=== PATIENT | male | born 1975 | race Caucasian/White ===

== ENCOUNTER 2017-06-07 12:59 | Emergency (ER) | payer OTHER ==
[2017-06-07 13:28] VITALS: BMI 27.1
--- NOTE | 2017-06-07 13:32 | ED PDOC ---
Arrival/HPI - General Chief Complaint: Dental Pain Time Seen by Provider: 06/07/17 13:25 Historian: Patient, Parent - History of Present Illness Time/Duration: Prior to Arrival Symptom Onset: Sudden Symptom Course: Unchanged Severity Level: Mild Associated Symptoms (Text): 06/07/17 13:30 Patient reports that he had a severe yawn and now his jaw is out of place and he is unable to close it properly. He last ate some oatmeal at approximately 10 AM this morning. He's been nothing by mouth since then. No medications and no known allergies. No past medical history. Family/Social History - Physician Review Nursing Documentation Reviewed: Yes Family/Social History: Unknown Family HX Smoking Status: Never Smoked Hx Alcohol Use: Yes Frequency of alcohol use: Socially Hx Substance Use: No Allergies/Home Meds Allergies/Adverse Reactions: Allergies No Known Allergies Allergy (Verified 06/07/17 13:28) Review of Systems - Physician Review All systems were reviewed & negative as marked: Yes Physical Exam Vital Signs Temp Pulse Resp BP Pulse Ox 06/07/17 13:50 68 18 151/95 H 06/07/17 13:45 98.1 F 79 18 136/78 100 06/07/17 13:00 98.1 F 78 18 136/78 100 Temperature: Afebrile Blood Pressure: Normal Pulse: Regular Respiratory Rate: Normal Appearance: Positive for: Well-Appearing, Non-Toxic, Uncomfortable Pain Distress: None Mental Status: Positive for: Alert and Oriented X 3 - Systems Exam Head: Present: Atraumatic, Normocephalic Pupils: Present: PERRL Extroacular Muscles: Present: EOMI Conjunctiva: Present: Normal Ears: Present: NORMAL TM, Normal Canal. No: Erythema Mouth: Present: Moist Mucous Membranes, Other (Mandible is obviously dislocated. ) Pharnyx: No: ERYTHEMA, EXUDATE, TONSILS ENLARGED Respiratory/Chest: Present: Clear to Auscultation, Good Air Exchange. No: Respiratory Distress, Accessory Muscle Use Cardiovascular: Present: Regular Rate and Rhythm, Normal S1, S2. No: Murmurs Neurological: Present: GCS=15, CN II-XII Intact, Speech Normal, Motor Func Grossly Intact Skin: Present: Warm, Dry, Normal Color. No: Rashes Psychiatric: Present: Alert, Oriented x 3, Normal Insight, Normal Concentration Medical Decision Making ED Course and Treatment: 06/07/17 13:52 Mandible reduction. After moderate sedation with etomidate and the patient on a monitor with IV placed and pulse oximetry placed and the nurse present the mandible was reduced manually into good position. A bunny wrap was placed. 06/07/17 14:58 Patient remains comfortable. He will be discharged home accompanied by his mother to follow-up with PMD. Soft diet. Follow up in ER as needed. - Medication Orders Current Medication Orders: Sodium Chloride (Sodium Chloride 0.9%) 1,000 mls @ 100 mls/hr IV .Q10H [facility] ED Procedural Sedation - Pre Anesthesia Assessment Chief Complaint: Dental Pain Past Medical History: Medications Reviewed Previous Surgies: Reviewed Family History/Social History: Reviewed - Physical Exam/Review of Systems Vital Signs Reviewed: Yes Cardiovascular: Regular Rate and Rhythm, Normal S1, S2, Peripheal Pulses Present Respiratory/Chest: Clear to Auscultation, Good Air Exchange Neurological: GCS=15, CN II-XII Intact, Speech Normal, Motor Func Grossly Intact , Normal Sensory Function, Normal Cerebellar Funct Mental Status: Alert and Oriented X 3 - Pre-Procedure Airway Assessment History of difficult intubation or surgical airway (i.e trach):: No Inability to extend neck:: Yes Mouth opening less than two finger breadth:: Yes Diagnosis of sleep apnea:: No Less than three finger breadth to hyoid bone:: Yes ASA Criteria: 1 - Healthy, normal. 2 - Mild systemic disease (No functional limitations, mildline obesity, DM withot complications, Hypertention). 3 - Severe systemic disease (Some functional limitation, stable angina, morbid obesity, controlled COPD/Asthma/CHF). 4 - Sever systemic disease constant threat to life (Unstable angina, active symptoms of COPD/Asthma, CHF/ Hypertension. 5 - Moribund ASA Clarification: ASA I Mallampati (airway): Class I Nursing ED Procedural Sedation: ER Moderate Sedation Start: 06/07/17 13: 37 Freq: Status: Active Created 06/07/17 13:37 EWO (Rec: 06/07/17 13:37 EWO [id number]) Document 06/07/17 13:45 SRE (Rec: 06/07/17 13:56 SRE [id number]) Mod Sedation Time Out Process Time Out Process Patient identification (MR# and name Yes from ID Band) Procedure verified Yes Consent read aloud and agreed upon Yes Correct Site/Side marked and visibe to Not Applicable team after prepping and draping (unless exempt) Implants, special equipment and x-rays Not Applicable available Prophylactic antibiotic given (if Not Applicable applicable) Pre-Procedure Mod Sedation Pre-Procedure Checklist Patient's identity verified by Patient stating name Patient stating [facility] ID bracelet Family member Pre Procedure Checklist BP monitor Signed consent Ambu bag Patient IV Patient ID Oxygen Airway Code Cart Suction set up Pre Anesthesia Assessment Chief Complaint Dental Pain Moderate Sedation VS & Pain Ax Temperature Temperature (97.6 F-99.6 F) 98.1 F Pulse Pulse Rate (60-90 beats/min) 79 Respirations Respiratory Rate (12-24 breaths/min) 18 Oxygen Delivery Method Nasal Cannula SPO2 (95-100) 100 O2 LPM (L/min) 3 Blood Pressure Blood Pressure (100/60-150/90 mm Hg) 136/78 Cardiac Rhythm Cardiac Rhythm sinus Document 06/07/17 13:50 SRE (Rec: 06/07/17 14:07 SRE [id number]) Pre-Procedure Mod Sedation Pre Anesthesia Assessment Chief Complaint Dental Pain Intra-Procedure Vital Signs Vital Signs and Pain Assessment Blood Pressure (100/60-150/90 mm Hg) 96/71 Pulse Rate (60-90 beats/min) 69 Respiratory Rate (12-24 breaths/min) 18 Level of Consciousness 5 = Unresponsive to Physical/ Verbal Stimuli Intra-Procedure Vital Signs #2 Vital Signs and Pain Assessment Blood Pressure (100/60-150/90 mm Hg) 164/103 Pulse Rate (60-90 beats/min) 70 Respiratory Rate (12-24 breaths/min) 16 Level of Consciousness 2 = Occasionally Drowsy, Easy to Arouse Pain Intensity 0 Intra-Procedure Vital Signs #3 Vital Signs and Pain Assessment Blood Pressure (100/60-150/90 mm Hg) 157/97 Pulse Rate (60-90 beats/min) 66 Respiratory Rate (12-24 breaths/min) 18 Level of Consciousness 1 = Alert Pain Intensity 0 Cardiac Rhythm sinus rhythm Intra-Procedure Vital Signs #4 Vital Signs and Pain Assessment Blood Pressure (100/60-150/90 mm Hg) 151/95 Pulse Rate (60-90 beats/min) 68 Respiratory Rate (12-24 breaths/min) 18 Level of Consciousness 1 = Alert REACT Score REACT Score Respirations Spontaneous Respirations > 10 Without Airway Support Energy Moves Legs: Can Keep Head Up Alertness Gentle Stimuli Only Circulation Systolic BP At PreOp or Above Full Pulse Temperature Temperature is >96 Degrees Farenheit Discharge Checklist Written MD order for Discharge Yes Vital signs assessed and are consistent Yes with pre-procedure reading Voided (if applicable) No: voided pre procedure Minimal nausea, vomiting, and dizziness No Ambulates to pre-procedural level Yes Alert and oriented to pre-procedural Yes level Responsible adult escort present Yes DISCHARGE INSTRUCTIONS GIVEN: Yes - Intra-Procedure (Medications) Medications Given: Sodium Chloride (Sodium Chloride 0.9%) 1,000 mls @ 100 mls/hr IV .Q10H [facility] Etomidate 15 mg IV push - Post-Procedure Post Procedure Note: Patient is awake alert in no longer sedated Disposition/Present on Arrival - Present on Arrival Any Indicators Present on Arrival: No History of DVT/PE: No History of Uncontrolled Diabetes: No Urinary Catheter: No History of Decub. Ulcer: No - Disposition Have Diagnosis and Disposition been Completed?: Yes Diagnosis: Dislocated mandible Disposition: HOME/ ROUTINE Disposition Time: 14:59 Patient Plan: Discharge Condition: IMPROVED Discharge Instructions (ExitCare): Dislocated Jaw (DC) Additional Instructions: Soft diet. Tylenol or Advil as directed on bottle as needed. Follow-up with PMD. Follow up in ER as needed. Forms: [employer] (E[place]ian)
[2017-06-07] MEDS ORDERED: Etomidate 20 mg/10ml Inj IV ONE (13:44)
[2017-06-07] MEDS ORDERED: Sodium Chloride 0.9% 1,000 ML IV SCH (14:15)
[2017-06-07] MEDS ORDERED: Etomidate 20 mg/10ml Inj IVP STA (14:58)
[2017-06-07 15:26] VITALS: BP 130/87; PULSE 61; RESP 16; TEMP 98; O2SAT 99
== END 2017-06-07 15:00 | disposition home or self-care (01) ==
LOC: ED 12:59
DX: S03.00XA Dislocation of jaw, unspecified side, initial encounter (principal); X58.XXXA Exposure to other specified factors, initial encounter
CPT/HCPCS: 21480; 96360; 96361; 99282; J7040